=== PATIENT | male | born 1960 | race Caucasian/White ===

== ENCOUNTER 2025-06-04 10:55 | Outpatient (AMB) | payer BC, SELFPAY ==
--- NOTE | 2025-06-04 10:58 | MHC.OFFVIS ---
Intake Visit Reasons: 6 month Pn Allergies No Known Allergies Allergy (Verified 06/04/25 10:58) Medication List - Last Reconciled 06/04/25 by Neda Vasquez CNP amlodipine 2.5 mg PO DAILY celecoxib 200 mg PO DAILY sertraline 25 mg PO DAILY 30 days simvastatin 40 mg PO BEDTIME tramadol 50 mg PO Q4H PRN zolpidem (Ambien) 5 mg PO BEDTIME PRN HPI Comments Details: He was having some more pain to left lower back. No radiation into legs. He got L SI injection in 03/2025 without relief, which was the first time in 3 years it has not helped, and was scheduled for another in 06/2025. He was taking celebrex and Tramadol 25mg at bedtime which helped some. Pain was worse after certain activities. 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 Numbness in base of toes bilaterally has not changed. No falls. Mood was not so good because of ongoing pain. Pain on left side in 02/2023, had SI joint injection and was pain free after a week. This is a chronic problem. PT has not helped. On 12/20/21 had decompression of nerve root and had no pain down the leg. Had gotten worse and epidurals did not work anymore. MRI shows multiple level disc disease and foraminal encroachment in his entire spine and was worse around L5 root which was decompressed. Had R facet joint injection in summer 2023, no further pain. [facility] Medical History (Updated 06/04/25 @ 11:34 by Neda Vasquez CNP) Sacroiliitis Lumbar disc disease HLD (hyperlipidemia) Sensory peripheral neuropathy Review of Systems Const Denies chills, Denies daytime sleepiness, Denies difficulty sleeping, Denies fatigue, Denies fever(s), Denies frequent falls, Denies headache(s), Denies increased appetite, Denies poor appetite, Denies snoring, Denies weakness, Denies weight gain and Denies weight loss Eyes Denies loss of vision ENT Denies vertigo, Denies dizziness, Denies headache(s) and Denies neck pain Card Denies chest pain at rest, Denies chest pain with activity, Denies syncope, Denies leg edema, Denies palpitations, Denies dyspnea and Denies dyspnea on exertion Resp Denies cough, Denies dyspnea, Denies dyspnea on exertion and Denies snoring GI Denies abdominal pain, Denies constipation, Denies heartburn, Denies diarrhea and Denies nausea Denies urinary frequency, Denies urinary incontinence and Denies urinary urgency Musc Denies abnormal gait, Reports back pain, Denies myalgias, Denies arthralgias, Denies neck pain, Reports numbness and Reports tingling Neuro Denies abnormal gait, Denies vertigo, Denies dizziness, Denies syncope, Denies frequent falls, Denies headache(s), Denies lack of coordination, Denies loss of vision, Denies memory loss, Reports numbness, Denies Other visual disturbances, Denies restless legs, Denies seizure-like activity, Reports tingling, Denies paresthesias, Denies tremor(s) and Denies weakness Psych Denies anxiety, Denies depression, Denies auditory hallucinations, Denies memory loss and Denies visual hallucinations Endo Denies fatigue and Denies palpitations Physical Exam Const Other: Abnormal Neurological Findings:?Left SI joint tenderness. 5-/5 iliopsoas?RLE. Slight blunting of pinprick sensation in the toes up to mid tarsal level and no vibration impairment Mental Status: alert and oriented X 3. Normal attention, orientation, memory, and affect. Cranial Nerves: Pupils are equal, round, and reactive to light. External ocular muscles are intact. Visual anderson are full, no ptosis. Face is symmetrical, no facial weakness or droop. Facial sensations are normal. Tongue protrudes in midline. Palate elevates symmetrically. Shoulder shrugging is normal Motor Examination: As above, otherwise normal muscle tone, bulk and strength. No atrophy or fasciculations. No drift of the extended upper extremities. DTR 2+. Plantars are flexor. Straight Leg Raisin degrees. Sensory Exam: As above, otherwise normal light touch, temperature, pinprick, vibration, and joint-position sensations. Rhomberg sign is absent. Coordination: No ataxia. No titubation. Ztclew-ov-udkk, fyyx-bwtm-isjm test, and rapid alternating movements were normal. Gait Exam: Within normal limits. Cerebellar Signs: Ncxvku-yq-wkxz and jbzp-rw-vmwt is normal. No dysdiadochokinesia. Extrapyramidal System: No tremor, rigidity with normal facial expressions. No bradykinesia. No bradyphrenia. Normal arm swing and posture. No propulsion or retropulsion. Speech: Normal. No dysphasia or dysarthria. Results Reviewed Results Reviewed: 05/20/20 NCV/EMG ALL Mild slowing of peroneal nerves across the neck of the fibula bilaterally. Mild slowing of sural nerves. Normal EMG in the left C5-T1 and left L4-S1 innervated muscles. Normal nerve conduction in the UE 05/11 MRI LS spine shows mild degen disease at multiple levels and a small central L5-S1 disc without root impingement or stenosis. f/u MRI 2021 showed multiple level degen disc disease arthropathy and foraminal encroachment.. 05/20/20 NCV/EMG ALL Mild slowing of peroneal nerves across the neck of the fibula bilaterally. Mild slowing of sural nerves. Normal EMG in the left C5-T1 and left L4-S1 innervated muscles. Normal nerve conduction in the UE 05/11 MRI LS spine shows mild degen disease at multiple levels and a small central L5-S1 disc without root impingement or stenosis. f/u MRI 2021 showed multiple level degen disc disease arthropathy and foraminal encroachment. Assessment & Plan Assessment & Plan (1) Lumbar radiculopathy: Code(s): M54.16 - Radiculopathy, lumbar region Category: Medical Plan: Continue celecoxib 200mg 1 capsule with food daily. He tried gabapentin 100mg in the past which did not help with pain and stopped medication. Discussed option for trying higher dose, declining at this time. (2) Sensory peripheral neuropathy: Code(s): G60.8 - Other hereditary and idiopathic neuropathies Category: Medical (3) Sacroiliitis: Code(s): M46.1 - Sacroiliitis, not elsewhere classified Category: Medical (4) Depression: Code(s): F32.A - Depression, unspecified Category: Medical Qualifiers: Depression Type: other depression Qualified Code(s): F32.89 - Other specified depressive episodes Plan: Start sertraline 25mg 1 tablet daily, use/side effects reviewed. Plan Meds tried: gabapentin 100mg (did not help) Medications: New sertraline 25 mg PO DAILY 30 tabs 3RF 30 days Coding Level of Care Code Est Pt Level 4 (86276) Diagnoses Lumbar radiculopathy M54.16 Sensory peripheral neuropathy G60.8 Sacroiliitis M46.1 Other depression F32.89 Depression Type: other depression
--- OUTSIDE RECORDS SUMMARY | 2025-06-04 11:49 | XMS_ITS | Encounter Summary ---
Author Organization [facility] Address [address] [place] [address] Phone Care Team Providers Care Executive Receptionist Name Role Phone Ariel Parra MD Primary Care Provider + Encounter Details Date Type Department Care Team (Late st Contact Info) Description 01/16/2019 Prep for Surgery [facility] Department of Orthopaedic Surgery, Hand & Upper Extremity Service [address] [facility], [address] [place] [address] Sarah Corley PA [address] [facility] [address] [place] [address] Social History Tobacco Use Types Packs/Day Years Used Date Smoking Tobacco: Former Cigarettes Q uit: 1993 Smokeless Tobacco: Never Alcohol Use Standard Drinks/Week Comments Yes 2 (1 standard drink = 0.6 oz pur e alcohol) Sex and Gender Information Value Date Recorded Sex Assigned at Not on file Legal Sex Male 3:34 PM EDT Gender Identity Not on file Sexual Orientation Not on file documented as of this encounter H&P Notes * Sarah Corley PA - 01/16/2019 7:31 AM EDT HPI: Mr. Simmons is a 57yo LHD gentleman seen in follow-up of his r elbow medial epicondylitis. Since his last visit, he had an EMG study performed which was negative for ulnar, median, or C8 or T1 neuropathy. He states that his medial elbow pain is getting worse, particularly with pronation. He has been unable to work out due to this. He is having crepitus with pronating motions of the forearm. He also notes some numbness and tingling at the right arm which wakes him up from sleep. There is also more dense numbness which localizes to the ring finger. He also has a history of lateral epicondylitis on the left but this is fully improved s/p injection last fall. Social History: Social History Socioeconomic History ??? Marital status: Legally Spouse name: Not on file ??? Number of children: Not on file ??? Years of education: Not on file ??? Highest education level: Not on file Occupational History ??? Not on file Social Needs ??? Financial resource strain: Not on file ??? Food insecurity: Worry: Not on file Inability: Not on file ??? Transportation needs: Medical: Not on file Non-medical: Not on file Tobacco Use ??? Smoking status: Former Smoker Last attempt to quit: 1993 Years since quittin.2 ??? Smokeless tobacco: Never Used Substance and Sexual Activity ??? Alcohol use: Yes Alcohol/week: 1.2 oz Types: 2 Glasses of wine per week ??? Drug use: Never ??? Sexual activity: Not on file Lifestyle ??? Physical activity: Days per week: Not on file Minutes per session: Not on file ??? Stress: Not on file Relationships ??? Social connections: Talks on phone: Not on file Gets together: Not on file Attends mormonism service: Not on file Active member of club or organization: Not on file Attends meetings of clubs or organizations: Not on file Relationship status: Not on file ??? Intimate partner violence: Fear of current or ex partner: Not on file Emotionally abused: Not on file Physically abused: Not on file Forced sexual activity: Not on file Other Topics Concern ??? Not on file Social History Narrative ??? Not on file Family History: No family history on file. PAST MEDICAL HISTORY: Your Diagnosis Also Included: Diagnosis ??? Pure hypercholesterolemia ??? Gastroesophageal reflux disease without esophagitis PAST SURGICAL HISTORY: Past Surgical History: Procedure Laterality Date ??? CLAVICLE SURGERY Right 2013 ??? ENDOSCOPY ??? KNEE ARTHROSCOPY Right 1989 ??? SURGERY SCROTAL / TESTICULAR as child MEDICATIONS: Outpatient Medications as of 01/16/2019 Medication ??? esomeprazole (NEXIUM) 40 MG capsule ??? loperamide (IMODIUM A-D) 2 mg tablet ??? simvastatin (ZOCOR) 20 MG tablet No current facility-administered medications on file as of 01/16/2019. ALLERGIES: No Known Allergies REVIEW OF SYSTEMS: CONSTITUTIONAL: No weight loss, fever, chills, weakness or fatigue. HEENT: Eyes: No visual loss, blurred vision, double vision or yellow sclerae. Ears, Nose, Throat: No hearing loss, sneezing, congestion, runny nose or sore throat. SKIN: No rash or itching. CARDIOVASCULAR: No chest pain, chest pressure or chest discomfort. No palpitations or edema. RESPIRATORY: No shortness of breath, cough or sputum. GASTROINTESTINAL: No anorexia, nausea, vomiting or diarrhea. No abdominal pain or blood. GENITOURINARY: Burning on urination. . Last menstrual period, MM/DD/YYYY. NEUROLOGICAL: No headache, dizziness, syncope, paralysis, ataxia, numbness or tingling in the extremities. No change in bowel or bladder control. MUSCULOSKELETAL: See HPI. HEMATOLOGIC: No anemia, bleeding or bruising. LYMPHATICS: No enlarged nodes. No history of splenectomy. PSYCHIATRIC: No history of depression or anxiety. ENDOCRINOLOGIC: No reports of sweating, cold or heat intolerance. No polyuria or polydipsia. ALLERGIES: No history of asthma, hives, eczema or rhinitis. Physical Exam: In general, well-appearing male in no acute distress. Alert and oriented, normal mood and affect. Non-labored breathing. Cervical spine motion is within normal limits. Negative spurling's. General Adult Exam GENERAL APPEARANCE: Well developed, well nourished, alert and cooperative, and appears to be in no acute distress. HEAD: normocephalic. EARS: hearing grossly intact. NOSE: No nasal discharge. NECK: Neck supple, non-tender without lymphadenopathy, masses or thyromegaly. CARDIAC: Normal S1 and S2. No S3, S4 or murmurs. Rhythm is regular. There is no peripheral edema, cyanosis or pallor. Extremities are warm and well perfused. Capillary refill is less than 2 seconds. No carotid bruits. LUNGS: Clear to auscultation and percussion without rales, rhonchi, wheezing or diminished breath sounds. SKIN: Skin normal color, texture and turgor with no lesions or eruptions. RUE: N/V intact. Motor intact [employer] EPL IO SILT U M R A TTP at medial epicondyle Pain with resisted pronation. No pain with resisted flexion Subluxating ulnar nerve Positive Durkan's at cubital tunnel Clunking of the radial head with flexion/extension and prono/supination of the R elbow Assessment & Plan: Right ulnar nerve submuscular transposition documented in this encounter Plan of Treatment Not on file documented as of this encounter Visit Diagnoses Not on filedocumented in this encounter Care Teams Executive Receptionist Relationship Specialty Start Date End Date Ariel Parra MD [address] [place] [id number] PCP - General Internal Medicine 08/15/18 documented as of this encounter Additional Source Comments The information contained in this document represents components of the legal health record. It is not the complete legal health record.[facility]
--- OUTSIDE RECORDS SUMMARY | 2025-06-04 11:49 | XMS_ITS | Clinical Summary ---
Author Organization [facility] Address [address] [place] [address] Care Team Providers Care Bumboater Name Role Phone Ariel Parra MD Primary Care Provider + [phone] Allergies No known active allergies Medications Medication Sig Dispensed Refills Start Date End Date Status acetaminophen (TYLENOL) 325 MG tablet Take 650 mg by mouth. 0 01/21/2019 Active docusate sodium (COLACE) 100 MG capsule Take 100 mg by mouth. 0 01/21/2019 Active esomeprazole (NexIUM) 40 MG capsule Take 40 mg by mouth. 0 01/16/2019 Active loperamide (IMODIUM A-D) 2 MG tablet Take 2 mg by mouth. 0 Active oxyCODONE (ROXICODONE) 5 MG immediate release tablet Take 5-10 mg by mouth. 0 01/21/2019 Active senna (SENOKOT) 8.6 MG tablet Take 1 tablet by mouth. 0 01/21/2019 Active sildenafil (VIAGRA) 100 MG tablet Take 100 mg by mouth. 0 01/16/2019 Active simvastatin (ZOCOR) tablet 20 mg Take 20 mg by mouth. 0 Active simvastatin (ZOCOR) tablet 40 mg Take 40 mg by mouth. 0 01/16/2019 Active zolpidem (AMBIEN) 10 MG tablet Take 10 mg by mouth. 0 04/22/2019 Active Active Problems Problem Noted Date Diagnosed Date Lateral epicondylitis of left elbow 07/03/2019 Possible radial tunnel syndrome, left 07/03/2019 Family History Medical History Relation Name Comments Cancer Father Hyperlipidemia Mother Relation Name Status Comments Father Mother Social History Tobacco Use Types Packs/Day Years Used Date Smoking Tobacco: Never Smokeless Tobacco: Never Alcohol Use Standard Drinks/Week Comments No 0 (1 standard drink = 0.6 oz pur e alcohol) Sex and Gender Information Value Date Recorded Sex Assigned at Not on file Gender Identity Not on file Sexual Orientation Not on file Last Filed Vital Signs Vital Sign Reading Time Taken Comments Blood Pressure - - Pulse - - Temperature - - Respiratory Rate - - Oxygen Saturation - - Inhaled Oxygen Concentration - - Weight 79.4 kg (175 lb) 07/03/2019 2:47 PM EDT Height 182.9 cm (6') 07/03/2019 2:47 PM EDT Body Mass Index 23.73 07/03/2019 2:47 PM EDT Plan of Treatment Health Maintenance Due Date Last Done Comments Hepatitis C Screening 1960 COVID-19 Vaccine (#1) 06/11/1962 Depression Screening 1973 Preventative Health Evaluation 1979 Colon Cancer Screening (Colonoscopy) 2006 Shingrix-Zoster Vaccine (1 of 2) 2011 DTap / Tdap / Td (2 - Td or Tdap) 07/14/2018 07/14/2008 Influenza Vaccine (#1) 2025 8, 07/26/2017, 09/10/2015, Additional history exists RSV Adult > 60+ Yrs or (1 - 1-dose 75+ series) 2036 Hepatitis B Vaccines Aged Out No long er eligible based on patient's age to complete this topic Pneumococcal Vaccine Aged Out No long er eligible based on patient's age to complete this topic RSV Ped < 20 months Aged Out No longe r eligible based on patient's age to complete this topic Care Teams Bumboater Relationship Specialty Start Date End Date Ariel Parra MD PCP - General Chair And Couch Maker 06/06/19
--- OUTSIDE RECORDS SUMMARY | 2025-06-04 11:49 | XMS_ITS | Clinical Summary ---
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 12/14/19 24 Active betamethasone, augmented, (DIPROLENE-AF) 0.05 % cream Apply bid prn 11/02/19 24 Active triamcinolone (NASACORT) 55 mcg nasal inhaler Administer into affected nostril(s). Active celecoxib (CeleBREX) 100 mg capsule Take 2 capsules (200 mg total) by mouth 1 (one) time each day. Active ALPRAZolam (XANAX) 0.5 mg tablet Take 1 Tablet by mouth at bedtime as needed for Sleep or Anxiety. 30 tablet 02/12/20 25 Active traMADoL (ULTRAM) 50 mg tablet Take 1 tablet (50 mg total) by mouth every 6 (six) hours if needed. Max Daily Amount: 200 mg 11/22/19 25 Active zolpidem (AMBIEN) 10 mg tablet Take 1 tablet (10 mg total) by mouth at bedtime as needed for sleep. Max Daily Amount: 10 mg 15 tablet 1 04/30/20 25 Active sildenafiL (VIAGRA) 100 mg tablet TAKE ONE TABLET BY MOUTH EVERY DAY NEEDED FOR ERECTILE DYSFUNCTION 30 tablet 2 05/07/20 25 Active esomeprazole (NexIUM) [address] capsule TAKE ONE CAPSULE BY MOUTH EVERY DAY 90 capsule 1 05/07/20 25 Active simvastatin (ZOCOR) 40 mg tablet TAKE ONE TABLET BY MOUTH AT BEDTIME 90 tablet 1 05/07/20 25 Active sildenafiL (VIAGRA) 100 mg tablet Take 1 tablet (100 mg total) by mouth 1 (one) time each day if needed for erectile dysfunction. FOR ERECTILE DYSFUNCTION 30 tablet 2 02/12/20 25 025 Discontinued esomeprazole (NexIUM) [address] capsule TAKE ONE CAPSULE BY MOUTH EVERY DAY 90 capsule 02/13/20 25 025 Discontinued simvastatin (ZOCOR) 40 mg tablet TAKE ONE TABLET BY MOUTH AT BEDTIME 90 tablet 02/13/20 25 025 Discontinued Active Problems Problem Noted Date Diagnosed Date Anemia 01/18/2024 Gonzalez's esophagus 05/17/2022 Anxiety 10/30/2019 Lateral epicondylitis of left elbow 07/03/2019 Raynaud's disease 01/18/2017 Overview (09/12/2024): amlodipine Elevated fasting glucose 01/28/2015 Palpitations 01/27/2013 Overview (09/12/2024): 2005. Stress testing negative, echo with mild MR. Holter only short svt (asymptomatic) Vitamin D deficiency 11/10/2009 Insomnia 01/11/2008 Overview (09/12/2024): ambien Disorder of bone and cartilage 03/27/2007 Overview (09/12/2024): 02/26 (Favio)--Hip -1.2, back normal IMO update Night sweats 12/28/2006 Overview (09/12/2024): 11/29--PPD, cxr neg, CT neg Onychomycosis 06/09/2006 Erectile dysfunction 03/09/2006 Overview (09/12/2024): Viagra 100mg Pure hypercholesterolemia 03/09/2006 Alopecia areata 03/06/2006 Elevated ferritin level 03/06/2006 Overview (09/12/2024): Normal iron saturation Heterozygous or Hemochromatosis gene H63D Rec observe per Hematology Esophageal reflux 03/06/2006 Overview (09/12/2024): Barretts esoph--Bronson EGD 12/05. 03/07 Allergic rhinitis 02/21/2006 Overview (09/12/2024): Spring Encounters Date Type Department Care Team Description 04/30/2025 8:30 AM EDT Office Visit Adult Medicine [address] [address] Jany Parra MD Pure hypercholesterolemia (Primary Dx); Elevated fasting glucose; Screening for malignant neoplasm of prostate; Need for pneumococcal 20-valent conjugate vaccination from Last 3 Months Immunizations Name Administration Dates Next Due Influenza Quadravalent, MDCK , 0.5ml, preservative free (Flucelvax) 6mo and older 07/12/2023,07/10/2018 Influenza Quadravalent, MDCK , 0.5ml, with preservative (Flucelvax) 6mo and older 08/06/2020,07/26/2017 Influenza trivalent, 0.5mL, preservative free (Fluarix; FluLaval; Fluzone) ages 6mo and older (Afluria) 3 years and older 07/16/2024,07/29/2022,08/20/2019 Influenza trivalent, with pr eservative (Fluzone; Afluria) 6mo and older 09/10/2015,07/30/2013,07/24/2012 Moderna (age 6mo & older) Bi valent, COVID-19, 0.5 mL or 0.25 mL dosage 07/29/2022 PPD Test 12/25/2006 Pneumococcal conjugate 20 va lent (Prevnar 20, PCV 20) 2mo and older 04/30/2025 Td Tetanus diptheria (Tdvax) 7yo and older 01/16 Tdap Tetanus diptheria acell ular pertussis (Boostrix; Adacel) 7yo and older 07/14/2008 Zoster recombinant (Shingrix ) 19yo and older 06/07/2019,01/16/2019 Surgical History Surgery Date Site/Laterality Comments OTHER SURGICAL HISTORY 01/21/2019 Right PROCEDURE: HISTORY OTHER; COMMENT: [facility]. Dr. Romero. right ulnar nerve relocation OTHER SURGICAL HISTORY Right PROCEDURE: HISTORY OTHER; COMMENT: Dr. Hanna, clavicular modification OTHER SURGICAL HISTORY Right PROCEDURE: HISTORY OTHER; COMMENT: Chondromalacia, Dr. 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 DX:I mpotence of organic origin; COMMENT: Viagra 100mg Other nonspecific findings o n examination of blood(790.99) 03/06/2006 DX:Other nonspecific find ings on examination of blood(790.99); COMMENT: Normal iron saturation Heterozygous or Hemochromatosis gene H63D Rec observe per Hematology Alopecia areata 03/06/2006 DX:Alopecia area ta Esophageal reflux 03/06/2006 DX:Esophageal reflux; COMMENT: Barretts esoph--Bronson Esophageal reflux 03/06/2006 DX:Esophageal reflux; COMMENT: Barretts esoph--Bronson Allergic rhinitis, cause unspecified 02/21/2006 DX:Allergic rhinitis, cause unspecified; COMMENT: Spring Epididymitis 10/2015 DX:Epididymitis Prostatitis 10/2015 DX:Prostatitis Family History Medical History Relation Name Comments Bladder Cancer Brother 1 non-smoker No Known Problems Brother 2 Asthma Daughter Other: peripheral neuropathy Father Prostate cancer Father radiation Hyperlipidemia Mother Stroke Mother Relation Name Status Comments Brother 1 Alive Brother 2 Alive Daughter Alive Father Alive Maternal Grandfather Maternal Grandmother Mother (Age 70) Paternal Grandfather Paternal Grandmother Social History Tobacco Use Types Packs/Day Years Used Date Smoking Tobacco: Former Cigarettes Q uit: 04/01/1994 Smokeless Tobacco: Never Tobacco Cessation:Counseling Given: Not Answered Alcohol Use Standard Drinks/Week Comments Yes 0 (1 standard drink = 0.6 oz pur e alcohol) Housing Instability Answer Date Recorde d Are you worried that in the next 2 months you may not have stable housing? No 10/28/2024 Food Access & Nutrition Answer Date Rec orded Do you have access to a vari ety of food including fruits and vegetables? Yes 10/28/2024 Access to Healthcare Answer Date Record ed Within the last 3 months, ho w many times did you visit the emergency department for your medical care? 0 10/28/2024 Health Literacy Answer Date Recorded How often do you need to hav e someone help you when you read instructions, pamphlets, or other written material from your doctor or pharmacy? Never 10/28/2024 Caregiver: How often do you need to have someone help you when you read instructions, pamphlets, or other written material from your doctor or pharmacy? Not on file 10/28/2024 Financial Risk Answer Date Recorded How hard is it for you to pa y for the very basics like food, housing, medical care, and air conditioning / heating? Not very hard 10/28/2024 Transportation Answer Date Recorded Has the lack of transportati on kept you from meetings, work, or from getting things needed for daily living? No Has the lack of transportati on kept you from medical appointments or from getting medications? No 10/28/2024 Social Isolation Answer Date Recorded How often do you feel lonely or isolated from th ose around you? Never 10/28/2024 Food Risk Answer Date Recorded Within the past 12 months we worried whether our food would run out before we got money to buy more. Never true 10/28/2024 Within the past 12 months th e food we bought just didn't last and we didn't have money to get more. Never true 10/28/2024 Dependent Care Answer Date Recorded Do you need help finding or paying for care for your loved ones. For example, child support agent or elderly care for an older adult? No 10/28/2024 Education Answer Date Recorded Do you think completing more education or training, like finishing a GED, going to college, or learning a trade, would be helpful for you? N/A 10/28/2024 Employment and Income Answer Date Recor ded During the last four weeks, have you been actively looking for work? No 10/28/2024 Living Situation Answer Date Recorded What is your living situation? 0 10/28/2024 Sex and Gender Information Value Date Recorded Sex Assigned at Not on file Legal Sex Male 6:06 AM EST Gender Identity Not on file Sexual Orientation Not on file Obstetrics History Last Filed Vital Signs Vital Sign Reading Time Taken Comments Blood Pressure 123/50 04/30/2025 8:28 AM EDT Pulse 57 04/30/2025 8:28 AM EDT Temperature 36.3 C (97.3 F) 04/30/2025 8:28 AM EDT Respiratory Rate - - Oxygen Saturation - - Inhaled Oxygen Concentration - - Weight 73 kg (161 lb) 04/30/2025 8:28 AM EDT Height 182.9 cm (6') 04/30/2025 8:28 AM EDT Body Mass Index 21.84 04/30/2025 8:28 AM EDT Plan of Treatment Upcoming Encounters Date Type Department Care Team ([facility] st Contact Info) Description 09/30/2025 9:30 AM EST Office Visit Adult Medicine [facility] [address] [place] [address] Tony Benedict PA [address] [place] [address] Health Maintenance Due Date Last Done Comments COVID-19 Vaccine ( season) 2024 07/29/2022, 10/06/2021, 01/06/2021, Additional history exists Influenza Vaccine (#1) 2025 , 07/12/2023, 07/29/2022, Additional history exists Social Influencers of Health Screening 10/28/2025 10/28/2024 DTaP,Tdap,and Td Vaccines (3 - Td or Tdap) 01/16/2029 01/16/2019, 07/14/2008 Cholesterol Screening (Lipid Panel) 04/30/2030 04/30/2025, 07/16/2024, 07/16/2024 Colorectal Cancer Screening: Colonoscopy 08/16/2032 08/16/2022 RSV Immunization Adult Patients (1 - 1-dose 75+ series) 2036 HIV Screening Completed 12/11/2006 Hepatitis C Screening Completed 07/29/2013 Zoster Vaccines Completed 06/07/2019, 01/16/2019 Depression Screening Completed 10/28/2024 Pneumococcal Vaccine: 50+ Years Completed 04/30/2025 HIB Vaccines Aged Out No longer eligi ble based on patient's age to complete this topic HPV Vaccines Aged Out No longer eligi ble based on patient's age to complete this topic Hepatitis A Vaccines Aged Out No long er eligible based on patient's age to complete this topic Hepatitis B Vaccines Aged Out No long er eligible based on patient's age to complete this topic IPV Vaccines Aged Out No longer eligi ble based on patient's age to complete this topic MMR Vaccines Aged Out No longer eligi ble based on patient's age to complete this topic Meningococcal ACWY Vaccine Aged Out N o longer eligible based on patient's age to complete this topic Meningococcal B Vaccine Aged Out No l onger eligible based on patient's age to complete this topic RSV Immunization Patients Under 20 months Aged Out No longer eligible based on patient's age to complete this topic Varicella Vaccines Aged Out No longer eligible based on patient's age to complete this topic Procedures Procedure Name Priority Date/Time Associated Diagnosis Comments PROSTATE SPECIFIC ANTIGEN SCREEN Routine 04/30/2025 9:17 AM EDT Screening for malignant neoplasm of prostate HEMOGLOBIN A1C Routine 04/30/2025 9:17 AM EDT Elevated fasting glucose LIPID PANEL WITH REFLEX TO DIRECT LDL Routine 04/30/2025 9:17 AM EDT Pure hypercholesterolemia COMPREHENSIVE METABOLIC PANEL Routine 04/30/2025 9:17 AM EDT Pure hypercholesterolemia COLONOSCOPY Routine 08/16/2022 HEPATITIS C SCREENING Routine 07/29/2013 HIV SCREENING Routine 12/11/2006 from Last 3 Months or Most Recently Relevant to Health Maintenance Results * Prostate specific antigen screen (04/30/2025 9:17 AM EDT) PSA 1.41 0.00 - 4.00 ng/mL LAB CHEMISTRY METHOD 04/30/2025 2:06 PM EDT [facility] Blood Venous blood specimen / Unknown Venipuncture / Unknown 04/30/2025 9:17 AM EDT 04/30/2025 9:17 AM EDT Narrative [facility] - 04/30/2025 2:06 PM EDT The Siemens Advia Centaur Chemiluminescent Immunoassay is used. Results obtained with different assay methods or kits cannot be used interchangeably. Results cannot be interpreted as absolute evidence of the presence or absence of malignant disease. C Ede Parra MD LAB BLOOD ORDERABLES Final Res ult [facility] [address] [place] [address], [place] [phone] * (ABNORMAL) Lipid panel with reflex to direct LDL (04/30/2025 9:17 AM EDT) Cholesterol 215(H) 0 - 200 mg/dL LAB CHEMISTRY METHOD 04/30/2025 1:42 PM EDT [facility] Triglycerides 75 0 - 150 mg/dL LAB CHEMISTRY [facility] HDL 110 >=40 mg/dL LAB CHEMISTRY METHOD 04/30/2025 1:42 PM T [facility] LDL Calculated 90 0 - 100 mg/dL LAB CHEMISTRY METHOD 04/30/2025 1:42 PM T [facility] VLDL Cholesterol Hernandez 15 mg/dL LAB CHEMISTRY METHOD 04/30/2025 1:42 PM EDT [facility] Non HDL Chol. (LDL+VLDL) 105 <145 mg/dL LAB CHEMISTRY METHOD 04/30/2025 1:42 PM EDT [facility] Chol/HDL Ratio 2.0 0.0 - 4.4 LAB CHEMISTRY METHOD 04/30/2025 1:42 PM [facility] Blood Venous blood specimen / Unknown Venipuncture / Unknown 04/30/2025 9:17 AM EDT 04/30/2025 9:17 AM EDT us Jany Parra MD LAB BLOOD ORDERABLES Final Res ult Performing Organization Address City/[facility]/ZIP Co de Phone Number [facility] [address] [place] [address], [place] [phone] * Hemoglobin A1c (04/30/2025 9:17 AM EDT) Pathologist [facility] Hemoglobin A1C 5.5 <6.5 % LAB CHEMISTRY METHOD 04/30/2025 1:11 PM EDT [facility] Mean Bld Glu Estim. 111 mg/dL LAB CHEMISTRY METHOD 04/30/2025 1:11 PM EDT [facility] Blood Venous blood specimen / Unknown Venipuncture / Unknown 04/30/2025 9:17 AM EDT 04/30/2025 9:17 AM EDT us Jany Parra MD LAB BLOOD ORDERABLES Final Res ult Performing Organization Address [facility]/ZIP Co de Phone Number [facility] [address] [place] [address], [place] [phone] * (ABNORMAL) Comprehensive metabolic panel (04/30/2025 9:17 AM EDT) [facility] Sodium 137 133 - 145 mmol/L LAB CHEMISTRY METHOD 04/30/2025 1:42 PM EDT [facility] Potassium 4.6 3.5 - 5.5 mmol/L LAB CHEMISTRY METHOD 04/30/2025 1:42 PM EDT [facility] Chloride 102 96 - 110 mmol/L LAB CHEMISTRY METHOD 04/30/2025 1:42 PM EDT [facility] CO2 27 21 - 32 mmol/L LAB CHEMISTRY METHOD 04/30/2025 1:42 PM EDT [facility] Anion Gap 8 3 - 11 LAB CHEMISTRY METHOD 04/30/2025 1:42 PM [facility] Glucose 103(H) 70 - 100 mg/dL LAB CHEMISTRY METHOD 04/30/2025 1:42 PM [facility] BUN 26(H) 5 - 25 mg/dL LAB CHEMISTRY METHOD 04/30/2025 1:42 PM [facility] Creatinine 1.02 0.70 - 1.30 mg/dL LAB CHEMISTRY METHOD 04/30/2025 1:42 PM [facility] eGFR 83 >=60 mL/min/1. 73m2 LAB CHEMISTRY METHOD 04/30/2025 1:42 PM [facility] Comment:Calculation based on the Chronic Kidney Disease Epidemiology Collaboration (CKD-EPI) equation refit without adjustment for race. BUN/Creatinine Ratio 25.5 LAB CHEMISTRY METHOD 04/30/2025 1:42 PM [facility] Calcium 9.7 8.5 - 10.5 mg/dL LAB CHEMISTRY METHOD 04/30/2025 1:42 PM [facility] AST (SGOT) 15 10 - 42 unit/L LAB CHEMISTRY METHOD 04/30/2025 1:42 PM [facility] ALT (SGPT) 24 10 - 60 unit/L LAB CHEMISTRY METHOD 04/30/2025 1:42 PM [facility] Alkaline Phosphatase 60 42 - 121 unit/L LAB CHEMISTRY METHOD 04/30/2025 1:42 PM [facility] Total Protein 6.5 6.0 - 8.0 g/dL LAB CHEMISTRY METHOD 04/30/2025 1:42 PM [facility] Albumin 4.0 3.2 - 5.0 g/dL LAB CHEMISTRY METHOD 04/30/2025 1:42 PM [facility] Total Bilirubin 0.6 0.0 - 1.4 mg/dL LAB CHEMISTRY METHOD 04/30/2025 1:42 PM [facility] Blood Venous blood specimen / Unknown Venipuncture / Unknown 04/30/2025 9:17 AM EDT 04/30/2025 9:17 AM EDT Jany Parra MD LAB BLOOD ORDERABLES Final Res ult [facility] [address] [place] [address], * Colonoscopy (08/16/2022) Colonoscopy no interpretation , abstracted Anatomical Region Laterality Modality Other Historical Provider HEALTH MAINTENANCE Final Result * Hepatitis C Screening (07/29/2013) Pathologist [facility] Hepatitis C Screening abstracted Historical Provider HEALTH MAINTENANCE Final Result * HIV Screening (12/11/2006) [facility] HIV Screening abstracted Historical Provider HEALTH MAINTENANCE Final Result from Last 3 Months or Most Recently Relevant to Health Maintenance Insurance [facility] Care Teams Strainer Tender Relationship Specialty Start Date End Date Jany Parra MD [address] [place] [id number] PCP - General 07/23/1998
== END 2025-06-04 11:41 | disposition home or self-care (01) ==
LOC: HO.HSM 10:56
PROVIDERS: PCP Pediatrics; Referring Provider Pediatrics; Visit Provider Registered Nurse
DX: M54.16 Radiculopathy, lumbar region (principal); G60.8 Other hereditary and idiopathic neuropathies; M46.1 Sacroiliitis, not elsewhere classified; F32.89 Other specified depressive episodes
CPT/HCPCS: 99214

== ENCOUNTER 2025-08-26 10:09 | Outpatient (AMB) | payer BC, SELFPAY ==
--- NOTE | 2025-08-26 10:13 | MHC.OFFVIS ---
Intake Visit Reasons: 3m/ LR, depression Allergies No Known Allergies Allergy (Verified 08/26/25 10:14) Medication List - Last Reconciled 08/26/25 by Neda Vasquez CNP amlodipine 2.5 mg PO DAILY celecoxib 200 mg PO DAILY 90 days simvastatin 40 mg PO BEDTIME tramadol 50 mg PO Q4H PRN zolpidem (Ambien) 5 mg PO BEDTIME PRN HPI Comments Details: More pain to left lower back continues. He got L SI injection in 03/2025 without relief, which was the first time in 3 years it had not helped, and got another injection on 06/28/2025 which only helped some for about 2 weeks. He was having constant softball sized area of pain to left lower back with intermittent electric current brief, shooting pains down anterior thigh. Shooting-type pains could be triggered by walking. He had trouble walking because of pain and felt like his left leg was going to give out, but no falls. He could not lay on his back, and sleep was disrupted because of pain. He got about 3 hours of sleep last night between 3am-6am. 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 He was mostly working from home. Numbness in base of toes bilaterally was unchanged. Sertraline was not helping with mood and made him drowsy, so he stopped medication. He was still taking celebrex and Tramadol as needed which may help some. He was going to [place] for his 's birthday and was worried about the flight. Pain on left side in 02/2023, had SI joint injection and was pain free after a week. This is a chronic problem. PT has not helped. On 12/20/21 had decompression of nerve root and had no pain down the leg. Had gotten worse and epidurals did not work anymore. MRI shows multiple level disc disease and foraminal encroachment in his entire spine and was worse around L5 root which was decompressed. Had R facet joint injection in summer 2023, no further pain. [facility] Medical History (Updated 06/04/25 @ 11:34 by Neda Vasquez CNP) Sacroiliitis Lumbar disc disease HLD (hyperlipidemia) Sensory peripheral neuropathy Review of Systems Const Denies chills, Denies daytime sleepiness, Denies difficulty sleeping, Denies fatigue, Denies fever(s), Denies frequent falls, Denies headache(s), Denies increased appetite, Denies poor appetite, Denies snoring, Denies weakness, Denies weight gain and Denies weight loss Eyes Denies loss of vision ENT Denies vertigo, Denies dizziness, Denies headache(s) and Denies neck pain Card Denies chest pain at rest, Denies chest pain with activity, Denies syncope, Denies leg edema, Denies palpitations, Denies dyspnea and Denies dyspnea on exertion Resp Denies cough, Denies dyspnea, Denies dyspnea on exertion and Denies snoring GI Denies abdominal pain, Denies constipation, Denies heartburn, Denies diarrhea and Denies nausea Denies urinary frequency, Denies urinary incontinence and Denies urinary urgency Musc Denies abnormal gait, Reports back pain, Denies myalgias, Denies arthralgias, Denies neck pain, Reports numbness and Reports tingling Neuro Denies abnormal gait, Denies vertigo, Denies dizziness, Denies syncope, Denies frequent falls, Denies headache(s), Denies lack of coordination, Denies loss of vision, Denies memory loss, Reports numbness, Denies Other visual disturbances, Denies restless legs, Denies seizure-like activity, Reports tingling, Denies paresthesias, Denies tremor(s) and Denies weakness Psych Denies anxiety, Denies depression, Denies auditory hallucinations, Denies memory loss and Denies visual hallucinations Endo Denies fatigue and Denies palpitations Physical Exam Const Other: General Appearance:? normal, in no acute distress. Heart:? S1, S2 normal, no murmurs. Lungs:? clear anteriorly and posteriorly. Musculoskeletal:? normal. Extremities:? no edema. Psych:? alert, oriented, cognitive function intact, cooperative with exam. Neuro Other: Abnormal Neurological Findings:?Left SI joint tenderness. 5-/5 iliopsoas?RLE. Slight blunting of pinprick sensation in the toes up to mid tarsal level and no vibration impairment Mental Status: alert and oriented X 3. Normal attention, orientation, memory, and affect. Cranial Nerves: Pupils are equal, round, and reactive to light. External ocular muscles are intact. Visual anderson are full, no ptosis. Face is symmetrical, no facial weakness or droop. Facial sensations are normal. Tongue protrudes in midline. Palate elevates symmetrically. Shoulder shrugging is normal Motor Examination: As above, otherwise normal muscle tone, bulk and strength. No atrophy or fasciculations. No drift of the extended upper extremities. DTR 2+. Plantars are flexor. Sensory Exam: As above, otherwise normal light touch, temperature, pinprick, vibration, and joint-position sensations. Rhomberg sign is absent. Coordination: No ataxia. No titubation. Gait Exam: Within normal limits. Cerebellar Signs: Pcvoyi-de-hhyf is okay. Extrapyramidal System: No tremor, rigidity with normal facial expressions. No bradykinesia. No bradyphrenia. Normal arm swing and posture. No propulsion or retropulsion. Speech: Normal. Results Reviewed Results Reviewed: 05/20/20 NCV/EMG ALL Mild slowing of peroneal nerves across the neck of the fibula bilaterally. Mild slowing of sural nerves. Normal EMG in the left C5-T1 and left L4-S1 innervated muscles. Normal nerve conduction in the UE 05/11 MRI LS spine shows mild degen disease at multiple levels and a small central L5-S1 disc without root impingement or stenosis. f/u MRI 2021 showed multiple level degen disc disease arthropathy and foraminal encroachment.. 05/20/20 NCV/EMG ALL Mild slowing of peroneal nerves across the neck of the fibula bilaterally. Mild slowing of sural nerves. Normal EMG in the left C5-T1 and left L4-S1 innervated muscles. Normal nerve conduction in the UE 05/11 MRI LS spine shows mild degen disease at multiple levels and a small central L5-S1 disc without root impingement or stenosis. f/u MRI 2021 showed multiple level degen disc disease arthropathy and foraminal encroachment. Assessment & Plan Assessment & Plan (1) Lumbar radiculopathy: Code(s): M54.16 - Radiculopathy, lumbar region Category: Medical Plan: Continue celecoxib 200mg 1 capsule with food daily. Start cyclobenzaprine 5mg 1 tablet at bedtime as needed for muscle spasm/pain, use/side effects reviewed. He tried gabapentin 100mg in the past which did not help with pain and stopped medication. He was not interested in trying higher dose of medication at this time. MRI LS spine ordered. Follow up after testing or sooner as needed. (2) Sensory peripheral neuropathy: Code(s): G60.8 - Other hereditary and idiopathic neuropathies Category: Medical (3) Sacroiliitis: Code(s): M46.1 - Sacroiliitis, not elsewhere classified Category: Medical (4) Depression: Code(s): F32.A - Depression, unspecified Category: Medical Qualifiers: Depression Type: other depression Qualified Code(s): F32.89 - Other specified depressive episodes Plan: He stopped sertraline as medication did not help and made him drowsy, medication discontinued. Plan Meds tried: gabapentin 100mg (did not help) Meds tried for mood: sertraline Orders: Orders MR lumbar spine wo con Today M54.16 - Radiculopathy, lumbar region Medications: New cyclobenzaprine 5 mg PO BEDTIME 30 tabs 1RF 30 days Coding Level of Care Code Est Pt Level 4 (69541) Diagnoses Lumbar radiculopathy M54.16 Sensory peripheral neuropathy G60.8 Sacroiliitis M46.1 Other depression F32.89 Depression Type: other depression
--- OUTSIDE RECORDS SUMMARY | 2025-08-26 11:50 | XMS_ITS | Clinical Summary ---
Author Organization [facility] Address [address] [place] [address] Care Team Providers Care Dehydration Plant Operator Name Role Phone Ariel Parra MD Primary Care Provider + [phone] Allergies No known active allergies Medications Medication [...] age to complete this topic Care Teams Dehydration Plant Operator Relationship Specialty Start Date End Date Ariel Parra MD PCP - General Benefits Technician 06/06/19
--- OUTSIDE RECORDS SUMMARY | 2025-08-26 11:50 | XMS_ITS | Encounter Summary ---
Author Organization [facility] Address [address] [place] [address] Phone Care Team Providers Care Township Supervisor Name Role Phone Ariel Parra MD Primary Care Provider + Encounter Details Date Type Department Care Team (Late st Contact Info) Description 01/16/2019 Prep for Surgery [facility] [place] of Orthopaedic Surgery, Hand & Upper Extremity Service [address] [facility], 2nd Floor, [address] [place] [address] Sarah Corley PA [address] [facility] [address] [place] [address] Social History Tobacco Use Types Packs/Day Years [...] file Gets together: Not on file Attends hinduism service: Not on file Active member of [...] on filedocumented in this encounter Care Teams Township Supervisor Relationship Specialty Start Date End Date Ariel Parra MD [address] [place] [address] PCP - General Internal Medicine 08/15/18 documented as of this encounter Additional Source Comments The information contained in this document represents components of the legal health record. It is not the complete legal health record.[facility]
--- OUTSIDE RECORDS SUMMARY | 2025-08-26 11:51 | XMS_ITS | Encounter Summary ---
Author Organization [facility] Address [address] [place] [address] Phone Care Team Providers Care Vegetable Loader Name Role Phone Ariel Parra MD Primary Care Provider + Encounter Details Date Type Department Care Team (Late st Contact Info) Description 01/21/2019 Procedure Pass [facility]IOP [address] [place] [address] Social History Tobacco Use Types Packs/Day Years [...] on file documented as of this encounter Plan of Treatment Not on file documented as of this encounter Visit Diagnoses Not on filedocumented in this encounter Care Teams Vegetable Loader Relationship Specialty Start Date End Date Airel Parra MD [address] [place] [address] PCP - General Internal Medicine 08/15/18 documented as of this encounter Additional Source Comments The information contained in this document represents components of the legal health record. It is not the complete legal health record.[facility]
--- OUTSIDE RECORDS SUMMARY | 2025-08-26 11:51 | XMS_ITS | Encounter Summary ---
Author Organization [facility] Address [address] [place] [address] Care Team Providers Care Gas And Oil Checker Name Role Phone Jany Parra MD Primary Care Provider [phone] Reason for Visit * Reason Onset Date Comments Referral 07/15/2025 Encounter Details Date Type Department Care Team ([facility] st Contact Info) Description 07/15/2025 Telephone Adult [facility] [address] [place] [phone] Jany Parra MD [address] [place] [address] Social History Tobacco Use Types Packs/Day Years Used Date Smoking Tobacco: Former Cigarettes Q uit: 04/01/1994 Smokeless Tobacco: Never Alcohol Use Standard Drinks/Week Comments Yes 0 [...] for your loved ones. For example, child nutrition director or elderly care for an older adult? [...] Date Recorded What is your living situation? Unrecognized valu e 10/28/2024 Sex and Gender Information Value Date Recorded Sex Assigned at Not on file Legal Sex Male 6:06 AM EST Gender Identity Not on file Sexual Orientation Not on file documented as of this encounter Progress Notes * Jennifer Sawyer - 07/15/2025 2:45 PM EDT Patient calling stating he asked for a referral to gastro about a month ago and would like the status of the request. [phone] Referral in system started but no information available documented in this encounter Plan of Treatment Upcoming Encounters Date Type Department Care Team (Late st Contact Info) Description 09/30/2025 9:30 AM EST Office Visit Adult Medicine - [place] [address] [place] [phone] Tony Benedict PA [address] [place] [address] 12/02/2025 9:40 AM EST Consult Gastroenterology - 299 [facility] [address] [phone] Cheryl Fernandez NP [address] [address] documented as of this encounter Visit Diagnoses Diagnosis S/P colonoscopy- Primary Other postprocedural status documented in this encounter Additional Health Concerns Assessment Noted Time PHQ-9 Depression Total Score: 0 10/28/19 25 4:22 PM EST documented as of this encounter Care Teams Gas And Oil Checker Relationship Specialty Start Date End Date Jany Parra MD [address] [place] [address] PCP - General 07/23/1998 documented as of this encounter
--- OUTSIDE RECORDS SUMMARY | 2025-08-26 11:51 | XMS_ITS | Clinical Summary ---
Author Organization [facility] Address [address] [facility] [address] [place] [address] Phone Care Team Providers Care Pain Medicine Physician Name Role Phone Ariel Parra MD Primary Care Provider + Allergies No known active allergies Medications esomeprazole (NEXIUM) 40 MG capsule Take 40 mg by mouth daily before breakfast. Active simvastatin (ZOCOR) 20 MG tablet Take 20 mg by mouth nightly at bedtime. Active loperamide (IMODIUM A-D) 2 mg tabletIndicatio ns:due to nexium Take 2 mg by mouth 2 (two) times a day. Indications: due to nexium Active acetaminophen (TYLENOL) 325 mg tablet Take 2 tablets (650 mg total) by mouth every 4 (four) hours as needed for mild pain. 01/21/2019 Active docusate sodium (COLACE) 100 MG capsule Take 1 capsule (100 mg total) by mouth 2 (two) times a day. 01/21/2019 Active senna (SENOKOT) 8.6 mg tablet Take 1 tablet by mouth daily. 01/21/2019 Active oxyCODONE 5 MG immediate release tablet Take 1-2 tablets (5-10 mg total) by mouth every 6 (six) hours as needed for moderate pain. Pt. may request partial fill 30 tablet 01/21/2019 Active Active Problems Problem Noted Date Diagnosed Date Pure hypercholesterolemia 01/15/2019 Gastroesophageal reflux disease without esophagi tis 01/15/2019 Overview (01/15/2019): Diagnosed with Gonzalez's Esophagus; stable and treated with Nexium for 15 years. Social History Tobacco Use Types Packs/Day Years Used Date Smoking Tobacco: Former Cigarettes Q uit: 1993 Smokeless Tobacco: Never Alcohol Use Standard Drinks/Week Comments Yes 2 (1 standard drink = 0.6 oz pur e alcohol) Education Answer Date Recorded Are you interested in more education? Not on jordi e 02/17/2023 Are you concerned about learning? Not on file 02/17/2023 No 02/17/2023 No 02/17/2023 Digital Access Answer Date Recorded No 03/18/2023 No 03/18/2023 No 03/18/2023 Reliable internet access at home? Not on file 03/18/2023 Device with a working camera? Not on file Sex and Gender Information Value Date Recorded Sex Assigned at Not on file Legal Sex Male 3:34 PM EDT Gender Identity Not on file Sexual Orientation Not on file Last Filed Vital Signs Vital Sign Reading Time Taken Comments Blood Pressure 120/61 01/21/2019 2:30 PM EDT Pulse 51 01/21/2019 2:30 PM EDT Temperature 36.7 C (98.1 F) 01/21/2019 2:09 PM EDT Respiratory Rate 10 01/21/2019 2:30 PM EDT Oxygen Saturation 94% 01/21/2019 2:30 PM EDT Inhaled Oxygen Concentration - - Weight 80.7 kg (178 lb) 01/21/2019 11:41 AM EDT Height 182.9 cm (6' 0.01 ) 01/21/2019 11:41 AM E DT Body Mass Index 24.14 01/21/2019 11:41 AM EDT Plan of Treatment Health Maintenance Due Date Last Done Comments LIPID PANEL 1961 DEPRESSION SCREENING 1973 SMOKING Hx and SMOKELESS TOBACCO SCREENING 1974 HEPATITIS C SCREENING 1979 HIV ONE-TIME SCREENING (18-65 YEARS) 1979 COLOGUARD 2006 COLONOSCOPY 2006 COLORECTAL CANCER SCREENING 2006 FIT TEST 2006 FOBT 2006 SIGMOIDOSCOPY 2006 VIRTUAL COLONOSCOPY 2006 PNEUMOCOCCAL VACCINES (50+ years) (1 of 1 - PCV) 2011 INFLUENZA VACCINE (#1) 2025 , 08/20/2019, 07/10/2018, Additional history exists COVID-19 VACCINE ( season) 2025 01/06/2021, 12/11/2020 Adult Td,Tdap Booster 01/16/2029 01/16/2019, 008 RSV VACCINE (1 - 1-dose 75+ series) 2036 ZOSTER VACCINES Completed 06/07/2019, 01/16/2019 HEPATITIS A VACCINES Aged Out No long er eligible based on patient's age to complete this topic HIB VACCINES Aged Out No longer eligi ble based on patient's age to complete this topic MENINGOCOCCAL VACCINES (ACWY) Aged Out No longer eligible based on patient's age to complete this topic MENINGOCOCCAL VACCINES (B) Aged Out N o longer eligible based on patient's age to complete this topic Medical Devices Not on file Insurance [employer] [facility] [address] [place] [address]ON [facility] [place]ARE [place] [id number] [employer] [place] [id number] [facility] CARE [place] [place] [employer] Care Teams Pain Medicine Physician Relationship Specialty Start Date End Date Ariel Parra MD [address] [place] [address] PCP - General Internal Medicine 08/15/18 Additional Source Comments The information contained in this document represents components of the legal health record. It is not the complete legal health record.[facility]
--- OUTSIDE RECORDS SUMMARY | 2025-08-26 11:51 | XMS_ITS | Encounter Summary ---
Author Organization [facility] Address [address] [place] [address] Phone Care Team Providers Care Layout Mechanic Name Role Phone Ariel Parra MD Primary Care Provider + Encounter Details Date Type Department Care Team (Late st Contact Info) Description 01/21/2019 Procedure Pass [facility] [address] [place] [address] Social History Tobacco Use Types Packs/Day Years [...] on filedocumented in this encounter Care Teams Layout Mechanic Relationship Specialty Start Date End Date Ariel Parra MD [address] [place] [address] PCP - General Internal Medicine 08/15/18 documented as of this encounter Additional Source Comments The information contained in this document represents components of the legal health record. It is not the complete legal health record.[facility]
--- OUTSIDE RECORDS SUMMARY | 2025-08-26 11:51 | XMS_ITS | Clinical Summary ---
Author Organization [facility] [address] [facility] Address [address] [place] [address] Phone Care Team Providers Care Thermite Bomb Loader Name Role Phone Jany Parra MD Primary Care Provider [phone] Allergies No known active allergies Medications clotrimazole-b [...] Daily Amount: 200 mg 11/22/19 25 Active esomeprazole (NexIUM) [address] capsule TAKE ONE CAPSULE BY MOUTH EVERY DAY 90 capsule 1 05/07/20 25 Active simvastatin (ZOCOR) 40 mg tablet TAKE ONE TABLET BY MOUTH AT BEDTIME 90 tablet 1 05/07/20 25 Active zolpidem (AMBIEN) 10 mg tablet Take 1 tablet (10 mg total) by mouth at bedtime as needed for sleep. Max Daily Amount: 10 mg 15 tablet 1 07/04/20 25 Active sildenafiL (VIAGRA) 100 mg tablet TAKE ONE TABLET BY MOUTH EVERY DAY NEEDED FOR ERECTILE DYSFUNCTION 30 tablet 2 07/30/20 25 Active sildenafiL (VIAGRA) 100 mg tablet TAKE ONE TABLET BY MOUTH EVERY DAY NEEDED FOR ERECTILE DYSFUNCTION 30 tablet 2 05/07/20 25 025 Discontinued Active Problems Problem Noted [...] per Hematology Esophageal reflux 03/06/2006 Overview (09/12/2024): Alex deluca--Bronson EGD 12/05. 03/07 Allergic rhinitis 02/21/2006 Overview (09/12/2024): Spring Encounters Date Type Department Care Team Description 07/29/2025 Telephone Adult Medicine - [place] [address] [place] [address] Jany Parra MD 07/15/2025 Telephone Adult Medicine - [place] [address] [place] [address] Jany Parra MD from Last 3 Months Immunizations Immunization Administration Dates Next Due Influenza Quadravalent, MDCK [...] for your loved ones. For example, child and family therapist or elderly care for an older adult? [...] AM EST Office Visit Adult Medicine - [place] [address] [place] [address] Tony Benedict PA [address] [place] [address] 12/02/2025 9:40 AM EST Consult Gastroenterology - 299 [facility] [address] [phone] Cheryl Fernandez, LANG 299 [facility] [address] [place] [address] Health Maintenance Due Date Last Done Comments COVID-19 Vaccine ( season) 2025 07/29/2022, 10/06/2021, 01/06/2021, Additional history exists Influenza [...] Procedure Name Priority Date/Time Associated Diagnosis Comments LIPID PANEL WITH REFLEX TO DIRECT LDL Routine 04/30/2025 9:17 AM EDT Pure hypercholesterolemia COLONOSCOPY Routine 08/16/2022 HEPATITIS C SCREENING Routine 07/29/2013 HIV SCREENING Routine 12/11/2006 from Last 3 Months or Most Recently Relevant to Health Maintenance Results * (ABNORMAL) Lipid panel with reflex to direct LDL (04/30/2025 9:17 AM EDT) Cholesterol 215(H) 0 - 200 mg/dL LAB CHEMISTRY METHOD 04/30/2025 1:42 PM EDT [facility] Triglycerides 75 0 - 150 mg/dL LAB CHEMISTRY METHOD 04/30/2025 1:42 PM EDT [facility] HDL 110 >=40 mg/dL LAB CHEMISTRY METHOD 04/30/2025 1:42 PM EDT [facility] LDL Calculated 90 0 - 100 mg/dL LAB CHEMISTRY METHOD 04/30/2025 1:42 PM EDT [facility] VLDL Cholesterol Hernandez 15 mg/dL LAB CHEMISTRY METHOD 04/30/2025 1:42 PM EDT [facility] Non HDL Chol. (LDL+VLDL) 105 <145 mg/dL LAB CHEMISTRY METHOD 04/30/2025 1:42 PM EDT [facility] Chol/HDL Ratio 2.0 0.0 - 4.4 LAB CHEMISTRY METHOD 04/30/2025 1:42 PM EDT [facility] Blood Venous blood specimen / Unknown Venipuncture / Unknown 04/30/2025 9:17 AM EDT 04/30/2025 9:17 AM EDT [facility] Ede Parra MD LAB BLOOD ORDERABLES Final Res ult [facility] [address] [place] [address], * Colonoscopy (08/16/2022) Pathologist [facility] Colonoscopy no interpretation , abstracted Anatomical Region Laterality Modality Other [facility] [place] [facility] [employer]INTENANCE Final Result * Hepatitis C Screening (07/29/2013) [facility] Hepatitis C Screening abstracted Chin Estes MD HEALTH MAINTENANCE Final Result * HIV Screening (12/11/2006) [facility] HIV Screening abstracted [facility] [place] [employer] Final Result from Last 3 Months or Most Recently Relevant to Health Maintenance Insurance [facility] Care Teams Thermite Bomb Loader Relationship Specialty Start Date End Date Jany Parra MD [address] [place] [address] PCP - General 07/23/1998
== END 2025-08-26 10:43 | disposition home or self-care (01) ==
LOC: HO.HSM 10:09
PROVIDERS: PCP Pediatrics; Visit Provider Registered Nurse
DX: M54.16 Radiculopathy, lumbar region (principal); G60.8 Other hereditary and idiopathic neuropathies; M46.1 Sacroiliitis, not elsewhere classified; F32.89 Other specified depressive episodes
CPT/HCPCS: 99214

== ENCOUNTER 2025-09-24 08:42 | Outpatient (AMB) | payer BC, SELFPAY ==
--- NOTE | 2025-09-24 08:44 | MHC.OFFVIS ---
Intake Visit Reasons: after MRI Allergies No Known Allergies Allergy (Verified 09/24/25 08:51) Medication List - Last Reconciled 09/24/25 by Neda Vasquez CNP amlodipine 2.5 mg PO DAILY celecoxib 200 mg PO DAILY 90 days cyclobenzaprine 5 mg PO BEDTIME 30 days simvastatin 40 mg PO BEDTIME tramadol 50 mg PO Q4H PRN zolpidem (Ambien) 5 mg PO BEDTIME PRN HPI Comments Details: Pain to left lower back worsening, with pain radiating further down left leg and now into foot. He was still taking celecoxib and tramadol, and was taking cyclobenzaprine at bedtime which helped him to sleep. Pain was worse when laying on his back and he had to lay on side with pillow between legs. He had trouble walking because of pain and felt like his left leg was going to give out, but no falls. 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 He had been working from home mostly. He got L SI injection from physiatry in 03/2025 without relief, which was the first time in 3 years it had not helped, and got another injection on 06/28/2025 which only helped some for about 2 weeks. He was having constant softball sized area of pain to left lower back with intermittent electric current brief, shooting pains down anterior thigh. Shooting-type pains could be triggered by walking. Numbness in base of toes bilaterally was unchanged. Sertraline was not helping with mood and made him drowsy, so he stopped medication. Pain on left side in 02/2023, had SI joint injection and was pain free after a week. This is a chronic problem. PT has not helped. On 12/20/21 had decompression of nerve root and had no pain down the leg. Had gotten worse and epidurals did not work anymore. MRI shows multiple level disc disease and foraminal encroachment in his entire spine and was worse around L5 root which was decompressed. Had R facet joint injection in summer 2023, no further pain. [facility] Medical History (Updated 06/04/25 @ 11:34 by Neda Vasquez CNP) Sacroiliitis Lumbar disc disease HLD (hyperlipidemia) Sensory peripheral neuropathy Review of Systems Const Denies chills, Denies daytime sleepiness, Denies difficulty sleeping, Denies fatigue, Denies fever(s), Denies frequent falls, Denies headache(s), Denies increased appetite, Denies poor appetite, Denies snoring, Denies weakness, Denies weight gain and Denies weight loss Eyes Denies loss of vision ENT Denies vertigo, Denies dizziness, Denies headache(s) and Denies neck pain Card Denies chest pain at rest, Denies chest pain with activity, Denies syncope, Denies leg edema, Denies palpitations, Denies dyspnea and Denies dyspnea on exertion Resp Denies cough, Denies dyspnea, Denies dyspnea on exertion and Denies snoring GI Denies abdominal pain, Denies constipation, Denies heartburn, Denies diarrhea and Denies nausea Denies urinary frequency, Denies urinary incontinence and Denies urinary urgency Musc Denies abnormal gait, Reports back pain, Denies myalgias, Denies arthralgias, Denies neck pain, Reports numbness and Reports tingling Neuro Denies abnormal gait, Denies vertigo, Denies dizziness, Denies syncope, Denies frequent falls, Denies headache(s), Denies lack of coordination, Denies loss of vision, Denies memory loss, Reports numbness, Denies Other visual disturbances, Denies restless legs, Denies seizure-like activity, Reports tingling, Denies paresthesias, Denies tremor(s) and Denies weakness Psych Denies anxiety, Denies depression, Denies auditory hallucinations, Denies memory loss and Denies visual hallucinations Endo Denies fatigue and Denies palpitations Physical Exam Const Other: General Appearance:? normal, in no acute distress. Heart:? S1, S2 normal, no murmurs. Lungs:? clear anteriorly and posteriorly. Musculoskeletal:? normal. Extremities:? no edema. Psych:? alert, oriented, cognitive function intact, cooperative with exam. Neuro Other: Abnormal Neurological Findings:?Left SI joint tenderness. 5-/5 iliopsoas?LLE. Slight blunting of pinprick sensation in the toes up to mid tarsal level and no vibration impairment Mental Status: alert and oriented X 3. Normal attention, orientation, memory, and affect. Cranial Nerves: Pupils are equal, round, and reactive to light. External ocular muscles are intact. Visual anderson are full, no ptosis. Face is symmetrical, no facial weakness or droop. Facial sensations are normal. Tongue protrudes in midline. Palate elevates symmetrically. Shoulder shrugging is normal Motor Examination: As above. Sensory Exam: As above. Coordination: No ataxia. No titubation. Gait Exam: Within normal limits. Cerebellar Signs: [id number] is okay. Extrapyramidal System: No tremor, rigidity with normal facial expressions. No bradykinesia. No bradyphrenia. Normal arm swing and posture. No propulsion or retropulsion. Speech: Normal. Results Reviewed Results Reviewed: MRI LS spine at [facility] 08/2025: Chronic multilevel spindylosis, 1. L4-5 left lamionotomy, biforaminal disc osteophyte complexes along with bilateral facet joint arthropathy result in mild-mod bilateral foraminal narrowing, widely patent spinal canal 2. L3-4 posterior disc osteophyte complex indents the ventral aspect of the thecal sac and along with bilateral facet joint arthropathy result in mild right and up to moderate left foraminal narrowing 3. l5-S1 disc buldge indents ventral aspect of the thecal sac and along with mild facet joint arthropathy result in mild biforaminal narrowing, greater to L, exiting left L5 nerve contact (reported). NCV/EMG ALL 05/20/20 Mild slowing of peroneal nerves across the neck of the fibula bilaterally. Mild slowing of sural nerves. Normal EMG in the left C5-T1 and left L4-S1 innervated muscles. Normal nerve conduction in the UE MRI LS spine 05/11 shows mild degen disease at multiple levels and a small central L5-S1 disc without root impingement or stenosis. f/u MRI 2021 showed multiple level degen disc disease arthropathy and foraminal encroachment. Assessment & Plan Assessment & Plan (1) Lumbar radiculopathy: Code(s): M54.16 - Radiculopathy, lumbar region Category: Medical Plan: MRI results reviewed, treatment options discussed - he is interested in neurosurgery referral, would like referral sent to Dr. Swift (who did his surgery in 2021), and referral was placed. Continue celecoxib 200mg 1 capsule with food daily. Continue cyclobenzaprine 5mg 1 tablet at bedtime as needed for muscle spasm/pain, discussed option of increasing dose - declining at this time. He tried gabapentin 100mg in the past which did not help with pain and stopped medication. He was not interested in trying higher dose of medication at this time. Follow up in 3 months or sooner as needed. (2) Sensory peripheral neuropathy: Code(s): G60.8 - Other hereditary and idiopathic neuropathies Category: Medical (3) Sacroiliitis: Code(s): M46.1 - Sacroiliitis, not elsewhere classified Category: Medical (4) Depression: Code(s): F32.A - Depression, unspecified Category: Medical Qualifiers: Depression Type: other depression Qualified Code(s): F32.89 - Other specified depressive episodes Plan Meds tried: gabapentin 100mg (did not help) Meds tried for mood: sertraline Orders: Referrals Neurosurgery Referral M54.16 - Radiculopathy, lumbar region Medications: Refilled cyclobenzaprine 5 mg PO BEDTIME 30 tabs 5RF 30 days Coding Level of Care Code Est Pt Level 4 (46761) Diagnoses Lumbar radiculopathy M54.16 Sensory peripheral neuropathy G60.8 Sacroiliitis M46.1 Other depression F32.89 Depression Type: other depression
--- OUTSIDE RECORDS SUMMARY | 2025-09-24 08:59 | XMS_ITS | Encounter Summary ---
Author Organization [facility] Address [address] [place] [address] Care Team Providers Care Farmworker Bulbs Name Role Phone Jany Parra MD Primary Care Provider [phone] Reason for Visit * Reason Onset Date Comments Referral 07/15/2025 Encounter Details Date Type Department Care Team ([facility] st Contact Info) Description 07/15/2025 Telephone Adult [facility] [address] [place] [id number] Jany Parra MD [address] [place] [address] Social History Tobacco Use Types Packs/Day Years Used Date Smoking Tobacco: Former Cigarettes 2 Q uit: 04/01/1994 Smokeless Tobacco: Never Alcohol [...] would like the status of the request. [phone] Referral in system started but no information available documented in this encounter Plan of Treatment Upcoming Encounters Date Type Department Care Team (Late st Contact Info) Description 09/30/2025 9:30 AM EST Office Visit Adult Medicine - [place] [address] [place] [address] Tony Benedict PA [address] [place] [address] 12/02/2025 9:40 AM EST Consult Gastroenterology - 299 [facility] [address] [phone] Cheryl Fernandez, LANG [address] [address] documented as of this encounter Visit Diagnoses Diagnosis S/P colonoscopy- Primary Other postprocedural status documented in this encounter Additional Health Concerns Assessment Noted Time PHQ-9 Depression Total Score: 0 10/28/19 25 4:22 PM EST documented as of this encounter Care Teams Farmworker Bulbs Relationship Specialty Start Date End Date Jany Parra MD [address] [place] [address] PCP - General 07/23/1998 documented as of this encounter
--- OUTSIDE RECORDS SUMMARY | 2025-09-24 08:59 | XMS_ITS | Clinical Summary ---
Author Organization [facility] [address] [facility] Address [address] [place] [address] Phone Care Team Providers Care Senior Ui Developer Name Role Phone Jany Parra MD Primary Care Provider [phone] Allergies No known active allergies Medications clotrimazole-be tamethasone (LOTRISONE) 1-0.05 % cream Apply bid prn itching 4 Active amLODIPine (NORVASC) 2.5 mg tablet Take 1 tablet (2.5 mg total) by mouth 1 (one) time each day. 4 Active betamethasone, augmented, (DIPROLENE-AF) 0.05 % cream Apply bid prn 4 Active triamcinolone (NASACORT) 55 mcg nasal inhaler Administer into affected nostril(s). Active celecoxib (CeleBREX) 100 mg capsule Take 2 capsules (200 mg total) by mouth 1 (one) time each day. Active ALPRAZolam (XANAX) 0.5 mg tablet Take 1 Tablet by mouth at bedtime as needed for Sleep or Anxiety. 30 tablet 5 Active traMADoL (ULTRAM) 50 mg tablet Take 1 tablet (50 mg total) by mouth every 6 (six) hours if needed. Max Daily Amount: 200 mg 5 Active esomeprazole (NexIUM) [address] capsule TAKE ONE CAPSULE BY MOUTH EVERY DAY 90 capsule 1 5 Active simvastatin (ZOCOR) 40 mg tablet TAKE ONE TABLET BY MOUTH AT BEDTIME 90 tablet 1 5 Active zolpidem (AMBIEN) 10 mg tablet Take 1 tablet (10 mg total) by mouth at bedtime as needed for sleep. Max Daily Amount: 10 mg 15 tablet 1 5 Active sildenafiL (VIAGRA) 100 mg tablet TAKE ONE TABLET BY MOUTH EVERY DAY NEEDED FOR ERECTILE DYSFUNCTION 30 tablet 2 5 Active Active Problems Problem Noted Date Diagnosed [...] Team Description 07/29/2025 Telephone Adult Medicine - [place] [address] [place] [address] Jany Parra MD 07/15/2025 Telephone Adult Medicine - [place] [address] [place] [address] Jany Parra MD from Last [...] 2 Q uit: 04/01/1994 Smokeless Tobacco: Never Tobacco [...] do you feel lonely or isolated from ose around you? Never 10/28/2024 Food Risk [...] for your loved ones. For example, child study team director or elderly care for an older [...] AM EST Office Visit Adult Medicine - [place] [address] [place] [address] Tony Benedict PA [address] [place] [address] 12/02/2025 9:40 AM EST Consult Gastroenterology - [address] [place] [address] [facility] [address] [place] [phone] Cheryl Fernandez, LANG 299 [facility] [address] [place] [address] Health Maintenance Due Date Last Done Comments [...] LAB CHEMISTRY METHOD 04/30/2025 1:42 PM EDT [facility] Triglycerides 75 0 - 150 mg/dL LAB CHEMISTRY METHOD 04/30/2025 1:42 PM EDT [facility] HDL 110 >=40 mg/dL LAB CHEMISTRY METHOD 04/30/2025 1:42 PM EDT [facility] LDL Calculated 90 0 - 100 mg/dL LAB CHEMISTRY METHOD 04/30/2025 1:42 PM EDT [facility] VLDL Cholesterol Hernandez 15 mg/dL LAB CHEMISTRY METHOD 04/30/2025 1:42 PM EDT [facility] Non HDL Chol. (LDL+VLDL) 105 <145 mg/dL LAB CHEMISTRY METHOD 04/30/2025 1:42 PM EDT [facility] Chol/HDL Ratio 2.0 0.0 - 4.4 LAB CHEMISTRY METHOD 04/30/2025 1:42 PM EDT [facility] Blood Venous blood specimen / Unknown Venipuncture / Unknown 04/30/2025 9:17 AM EDT 04/30/2025 9:17 AM EDT C Ede Parra MD LAB BLOOD ORDERABLES Final Res ult [facility] [address] [place] [address], * Colonoscopy (08/16/2022) Pathologist [facility] Colonoscopy no interpretation , abstracted Anatomical Region Laterality Modality Other Historical Provider HEALTH MAINTENANCE Final Result * Hepatitis C Screening (07/29/2013) Pathologist [facility] Hepatitis C Screening abstracted [facility] Provider HEALTH MAINTENANCE Final Result * HIV Screening (12/11/2006) [facility] HIV Screening abstracted [facility] Provider HEALTH MAINTENANCE Final Result from Last 3 Months or Most Recently Relevant to Health Maintenance Insurance [facility] Care Teams Senior Ui Developer Relationship Specialty Start Date End Date Jany Parra MD [address] [place] [address] PCP - General 07/23/1998
--- OUTSIDE RECORDS SUMMARY | 2025-09-24 08:59 | XMS_ITS | Encounter Summary ---
Author Organization [facility] Address [address] [place] [address] Phone Care Team Providers Care Helper Maintenance Cleaning Name Role Phone Ariel Parra MD Primary Care Provider + Encounter Details Date Type Department Care Team (Late st Contact Info) Description 01/21/2019 Procedure Pass [facility] [address] [place] [address] Social History Tobacco Use Types Packs/Day Years [...] on filedocumented in this encounter Care Teams Helper Maintenance Cleaning Relationship Specialty Start Date End Date Ariel Parra MD [address] [place] [address] PCP - General Internal Medicine 08/15/18 documented as of this encounter Additional Source Comments The information contained in this document represents components of the legal health record. It is not the complete legal health record.[facility]
--- OUTSIDE RECORDS SUMMARY | 2025-09-24 08:59 | XMS_ITS | Encounter Summary ---
Author Organization [facility] Address [address] [place] [address] Phone Care Team Providers Care Ethernet Network Architect Name Role Phone Ariel Parra MD Primary Care Provider + Encounter Details Date Type Department Care Team (Late st Contact Info) Description 01/21/2019 Procedure Pass [facility] [address] [place] [address] Social History Tobacco Use Types Packs/Day Years [...] on filedocumented in this encounter Care Teams Ethernet Network Architect Relationship Specialty Start Date End Date Ariel Parra MD [address] [place] [address] PCP - General Internal Medicine 08/15/18 documented as of this encounter Additional Source Comments The information contained in this document represents components of the legal health record. It is not the complete legal health record.[facility]
--- OUTSIDE RECORDS SUMMARY | 2025-09-24 08:59 | XMS_ITS | Clinical Summary ---
Author Organization [facility] Address [address] [facility] [address] [place] [address] Phone Care Team Providers Care Binder Stripper Machine Name Role Phone Ariel Parra MD Primary [...] Devices Not on file Insurance [facility] Address: [facility] [id number] [place] [id number] [place] [facility] Address: [facility] [id number] [place] [id number] [place], [place] [address] CARE [place] [id number] [place] [id number] [facility] Address: [address] [place] [phone] [place] [facility] Address: [address] [place] [id number] Care Teams Binder Stripper Machine Relationship Specialty Start Date End Date Airel Parra MD [address] [place] [address] PCP - General Internal Medicine 08/15/18 Additional Source Comments The information contained in this document represents components of the legal health record. It is not the complete legal health record.[facility]
--- OUTSIDE RECORDS SUMMARY | 2025-09-24 08:59 | XMS_ITS | Clinical Summary ---
Author Organization [facility] Address [address] [place] [address] Care Team Providers Care Pipe Stem Sawyer Name Role Phone Ariel Parra MD Primary Care Provider + [phone] Allergies No known active allergies Medications Medication [...] age to complete this topic Care Teams Pipe Stem Sawyer Relationship Specialty Start Date End Date Ariel Parra MD PCP - General Pit Clerk 06/06/19
--- OUTSIDE RECORDS SUMMARY | 2025-09-24 08:59 | XMS_ITS | Encounter Summary ---
Author Organization [facility] Address [address] [place] [address] Phone Care Team Providers Care Transit Mixer Driver Name Role Phone Ariel Parra MD Primary Care Provider + Encounter Details Date Type Department Care Team (Late st Contact Info) Description 01/16/2019 Prep for Surgery [facility] Department of Orthopaedic Surgery, Hand & Upper Extremity Service [address] [facility] Floor, [address] [place] [address] Sarah Corley PA [address] [facility] [address] [place] [address] Social History Tobacco Use Types Packs/Day Years [...] file Gets together: Not on file Attends latter day service: Not on file Active member of [...] on filedocumented in this encounter Care Teams Transit Mixer Driver Relationship Specialty Start Date End Date Ariel Parra MD [address] [place] [address] PCP - General Internal Medicine 08/15/18 documented as of this encounter Additional Source Comments The information contained in this document represents components of the legal health record. It is not the complete legal health record.[facility]
== END 2025-09-24 09:00 | disposition home or self-care (01) ==
LOC: HO.HSM 08:43
PROVIDERS: PCP Pediatrics; Visit Provider Registered Nurse
DX: M54.16 Radiculopathy, lumbar region (principal); G60.8 Other hereditary and idiopathic neuropathies; M46.1 Sacroiliitis, not elsewhere classified; F32.89 Other specified depressive episodes
CPT/HCPCS: 99214

== ENCOUNTER 2025-10-02 09:22 | Outpatient (AMB) | payer BC, SELFPAY ==
[2025-10-02 09:29] VITALS: BMI 22.1
--- NOTE | 2025-10-02 09:29 | A.PHYSOV ---
Vital Signs 10/02/25 09:29 Height 6 ft Weight 163 lb BMI 22.1 Intake Visit Reasons: lower back pain Intake Note: Patient is a 64 year old male in office today for a follow up visit for low back pain. Allergies ivp dye Allergy (Unknown, Uncoded 10/02/25 09:28) Unknown HPI Comments Details: History of Present Illness The patient is a 64 year old male presenting for a follow-up visit for chronic lower back pain and lumbar radiculitis. He reports his symptoms are worsening, and his left leg has recently started giving out and buckling. He states he has constant pain in his left leg. The patient underwent a lumbar laminotomy in 2021 to address a left-sided disc herniation, during which a piece of bone and disc were removed to decompress the spinal cord. The surgery was effective for a period of time. He has a history of multiple sacroiliac joint injections, with the most recent procedure on June 28, 2025. He has a history of peripheral neuropathy causing a lack of sensation in his toes bilaterally, which predated his first surgery. He takes tramadol and cyclobenzaprine for his symptoms. A recent lumbosacral spine MRI was performed on September 17, 2025, which was compared to a prior MRI from April 30, 2024. The 2023 MRI showed improvement and interval decompression at L4-L5 and L5-S1. The recent MRI revealed increasing bulge at the L5-S1 level now with a contact of the left exiting L5 nerve root. He also has neural foraminal stenosis on the left at the L3-L4 level. He presents with the symptoms that could be consistent with L3 and L5 radiculitis on the left side. Pain Description - Onset and Timing: The patient reports his pain is getting worse, with constant left leg pain and excruciating lower back pain that develops by noon if he does not take tramadol. - Quality and Character: He describes the pain as a feeling of being punched in the kidneys on his left side and a shooting pain down his leg. - Location and Radiation: The pain is in his lower back and radiates down the left leg, specifically on the outside of the leg to the small toe and in the front of the thigh, but not to the big toe or above the ankle. - Exacerbating Factors: Pain is aggravated by prolonged sitting (back pain), walking (leg pain), and lying down on his back. - Relieving Factors: Sleeping on his right side in a position with a pillow between his legs is more comfortable. - Associated Symptoms: The patient reports his left leg gives out and sarai while walking, has stiffness, and has pre-existing numbness in his toes bilaterally. Results - Lumbosacral Spine MRI (September 17, 2025): Findings reviewed and compared to a prior study from April 30, 2024. - The study shows a worsening issue at L5-S1 contacting the left L5 nerve, which represents a progression. - There is increased disc bulging at L5-S1, also contacting the left L5 nerve root. - It also demonstrates some narrowing of the left L3 neural foramen. - Lumbosacral Spine MRI (April 30, 2024): The prior study showed a decrease in the size of the L3-L4 herniation and interval decompression of the left lateral recess at L4-L5, which was likely due to his surgery. [facility] Medical History (Updated 10/02/25 @ 12:55 by Prince Self DO) Spinal stenosis, lumbar region with neurogenic claudication Post laminectomy syndrome Sacroiliitis Lumbar disc disease HLD (hyperlipidemia) Sensory peripheral neuropathy Surgical History (Updated 10/02/25 @ 09:31 by Juanis Mercedes MA) Ulnar nerve entrapment at right elbow History of knee surgery H/O shoulder surgery History of back surgery Social History (Updated 10/01/25 @ 11:45 by Juanis Mercedes MA) Household Members: Spouse Alcohol intake: current Alcohol intake frequency: holidays/special occasions only Patient Tobacco Use Status: Former Tobacco user Current occupational status: employed 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 - Denies pain in the right leg. - Neurological: Reports left leg weakness with buckling, and shooting pain down the left leg. - Reports he cannot feel his toes on both sides due to pre-existing peripheral neuropathy. Physical Exam Exam Exam: Physical Exam - Musculoskeletal: Hip flexion is weaker on the left side compared to the right. - Neurological: There is weakness of the left extensor hallucis longus. - Reflexes were symmetric. Gait was slightly antalgic on the left side. Lumbar extension was restricted. Tenderness with palpation over left SI sulcus. Vital Signs: BMI result Body Mass Index 22.1 Assessment & Plan Assessment & Plan (1) Lumbar radiculopathy: Code(s): M54.16 - Radiculopathy, lumbar region Category: Medical (2) Sacroiliitis: Code(s): M46.1 - Sacroiliitis, not elsewhere classified Category: Medical (3) Post laminectomy syndrome: Code(s): M96.1 - Postlaminectomy syndrome, not elsewhere classified Category: Medical (4) Spinal stenosis, lumbar region with neurogenic claudication: Code(s): M48.062 - Spinal stenosis, lumbar region with neurogenic claudication Category: Medical Plan Pain Management - Affect: The patient expresses that he is 64 and does not want to live in pain every day. - Analgesia: He takes half a tramadol in the morning and half in the afternoon, which prevents excruciating lower back pain from developing while sitting. - He also takes cyclobenzaprine at night for sleep. - Activities of Daily Living: His pain interferes with sitting for work and with walking, during which his knee sarai, causing him to grab onto things to prevent falling. - Lying on his back is uncomfortable, and he must sleep on his right side. - Aberrant Drug Related Behaviors: He states he does not want to live on tramadol. Plan Patient was informed and verbally consented to the use of an ambient scribe for clinic note documentation during this visit. 1. Lumbar Radiculopathy The patient's worsening left leg pain, weakness, and buckling are consistent with the MRI findings of nerve root irritation at multiple levels. Physical exam findings of left hip flexion weakness may correspond to L3 nerve involvement, while weakness of the left extensor hallucis longus corresponds to L5 nerve involvement. The disc pathology at L4-L5 and L5-S1 is noted to be contacting the left L5 nerve root. While the imaging does not appear immediately surgical, a non-surgical intervention is warranted to manage symptoms. Plan is to proceed with a left-sided L3 and L5 transforaminal epidural steroid injection. The office will call the patient to schedule the procedure. 2. Chronic Low Back Pain The patient's chronic low back pain is exacerbated by prolonged sitting, consistent with degenerative changes. He manages this with tramadol and cyclobenzaprine. It was recommended that he get up and walk around frequently rather than sitting for prolonged periods. 3. Status Post Lumbar Surgery The patient is status post a 2021 lumbar laminotomy with recurrent and progressive symptoms. He wishes to avoid another surgery but is not willing to continue living with his current level of pain. An appointment with his surgeon is scheduled for November, but he is attempting to be seen sooner. I will send a text message to the surgeon to request an earlier appointment for the patient. Risks and benefits of the procedure were discussed with the patient. Potential alternative measures were also discussed. Patient understands that the procedure is completely elective. Potential side effects associated with injectable medications were discussed. All questions were answered to the patient's satisfaction. Discussion Notes I reviewed the patient's recent lumbosacral spine MRI from September 17, 2025, and compared it to his prior study from April 30, 2024. I explained to him that his symptoms of left leg pain, weakness, and buckling correlate with the MRI findings, which include narrowing of the left L3 neural foramen and disc bulging at L5-S1 that is contacting the left L5 nerve root. I informed him that while the MRI findings are not striking enough to be immediately surgical in my opinion, his surgeon may view it differently. We discussed management options, and I recommended a left L3 and L5 transforaminal epidural steroid injection as a measure to help him get over his current exacerbation. The patient consented to the procedure. We discussed that the procedure could cause temporary numbness in his left leg, and that it would be a good idea for him to arrange for someone to drive him home, though it is not strictly required as he would be able to wait in the office for any numbness to wear off. I also agreed to contact his surgeon to support his request for an earlier follow-up appointment. Patient Instructions - Your worsening lower back pain, left leg pain, and weakness are likely due to nerve irritation in your back, as seen on your recent MRI. - We will schedule you for a left-sided L3 and L5 transforaminal steroid injection to help reduce pain and inflammation. - Our office staff will call you to schedule this procedure. - It is recommended that you have someone available to drive you home from the injection procedure, as your leg may be temporarily numb afterward. - Continue taking Tramadol and Cyclobenzaprine as you have been for pain management. - Avoid sitting for long periods of time; make sure to get up and walk around frequently. - We will contact your surgeon to request an earlier appointment for you to discuss your options. Coding Level of Care Code Est Pt Level 4 (09689) Add On Problem Visit Only Diagnoses Lumbar radiculopathy M54.16 Sacroiliitis M46.1 Post laminectomy syndrome M96.1 Spinal stenosis, lumbar region with neurogenic claudication M48.062
== END 2025-10-02 10:02 | disposition home or self-care (01) ==
LOC: HO.HPHYS 09:22
PROVIDERS: PCP Pediatrics; Visit Provider Physical Medicine & Rehabilitation
DX: M54.16 Radiculopathy, lumbar region (principal); M46.1 Sacroiliitis, not elsewhere classified; M96.1 Postlaminectomy syndrome, not elsewhere classified; M48.062 Spinal stenosis, lumbar region with neurogenic claudication
CPT/HCPCS: 99214